=== PATIENT | male | born 1960 | race Caucasian/White ===

== ENCOUNTER 2020-11-11 11:51 | Outpatient (CLI) | payer BC, SELFPAY ==
--- NOTE | 2020-11-11 12:41 | ECG_ITS ---
Measurements Intervals [place] Rate: 77 P: 50 RI: 171 QRS: 60 QRSD: 111 T: 11 QT: 334 QTc: 380 Interpretive Statements SINUS RHYTHM INTRAVENTRICULAR CONDUCTION DELAY DELAYED PRECORDIAL R/S TRANSITION BORDERLINE ECG Electronically Signed On 11-11-2020 12:54:07 CDT by Sven Penn D.O.
[2020-11-11 13:16] LABS: Basophils Absolute Auto 0.1 K/mm3 (0.0-0.1); Basophils Percent Auto 0.7 % (0.2-1.2); Eosinophils Absolute Auto 0.1 K/mm3 (0-0.3); Eosinophils Percent Auto 0.9 % (0-4.4); Hematocrit 45.1 % (42.0-52.0); Hemoglobin 15.4 g/dL (14.0-18.0); Immature Granulocyte Absolute 0.02 K/mm3 (0.00-0.031); Immature Granulocyte Percent A 0.3 % (0-0.5); Lymphocytes Absolute Auto 2.36 K/mm3 (0.9-3.2); Lymphocytes Percent Auto 30.8 % (18.3-44.2); Mean Corpuscular HGB Conc 34.1 g/dl (32-36); Mean Corpuscular Hemoglobin 30.4 pg (26-34); Monocytes Absolute Auto 0.5 K/mm3 (0.1-0.6); Monocytes Percent Auto 6.5 % (2.6-8.5); Neutrophils Absolute Auto 4.7 K/mm3 (1.3-6.7); Neutrophils Percent Auto 60.8 % (45.5-73.1); Platelet Count Result 345 k/mm3 (150-375); Red Blood Count 5.07 M/mm3 (4.6-6.20); Red Cell Distribution Width 12.7 % (11.5-14.5); White Blood Count 7.7 K/mm3 (4.5-10.0)
[2020-11-11 13:26] LABS: INR 0.9; Prothrombin Time 12.8 Seconds (11.1-14.7)
[2020-11-11 13:27] LABS: Alanine Aminotransferase 15 U/L (4-50); Albumin Level 4.5 g/dL (3.5-5.1); Alkaline Phosphatase 69 U/L (38-126); Anion Gap 5 mmol/L (8-16); Aspartate Amino Transferase 28 U/L (17-59); Bilirubin,Total 0.3 mg/dL (0.2-1.3); Blood Urea Nitrogen 14 mg/dL (9-20); Calcium 9.2 mg/dL (8.4-10.2); Carbon Dioxide 35 mmol/L (22-30); Chloride 102 mmol/L (98-107); Estimated Glomerular Filt Rate > 60; Glucose 90 mg/dL (75-110); Partial Thromboplastin Time 29.3 SECONDS (22.3-36.8); Sodium 142 mmol/L (137-145)
== END 2020-11-11 11:52 | disposition home or self-care (01) ==
LOC: ANHSURGERY 11:56
PROVIDERS: Family Provider Pediatrics; PCP Pediatrics; Visit Provider Urology
DX: C61 Malignant neoplasm of prostate (principal); I45.9 Conduction disorder, unspecified
CPT/HCPCS: 36415; 80053; 85025; 85610; 85730; 86850; 86900; 86901; 87086; 93005

== ENCOUNTER → 2020-11-16 01:25 | Outpatient (CLI) | payer BC, SELFPAY ==
[2020-11-16 19:34] LABS: SARS-CoV-2 RNA PCR Negative
== END ==
PROVIDERS: Family Provider Pediatrics; PCP Pediatrics; Visit Provider Urology
DX: Z01.812 Encounter for preprocedural laboratory examination (principal); Z20.822 Contact with and (suspected) exposure to COVID-19
CPT/HCPCS: C9803; U0003; U0005

== ENCOUNTER 2020-11-19 01:03 | Day surgery (SDC) | payer BC, SELFPAY ==
[2020-11-11 12:09] VITALS: BMI 28.0
[2020-11-11 12:41] VITALS: BP 139/84; PULSE 92; RESP 16; TEMP 37.1; O2SAT 99
[2020-11-19] VITALS (14 sets, daily range): BP systolic 102–140; BP diastolic 68–86; PULSE 81–99; RESP 12–18; TEMP 35.4–37.2; O2SAT 94–100; BMI 27.5
[2020-11-19] MEDS: LACTATED RINGERS 1,000 ML 30 ML IV CONT ×2 (06:32→11:52)
--- NOTE | 2020-11-19 06:52 | WPDANESEPPF ---
Anes - Initial Pre Proc Eval Procedure: Operation Date: 11/19/20 07:30 Proposed Procedures p Robotic Assisted Nerve Sparing Prostatectomy, Possible Pelvic Lymph Node Dissection - Reza Cho MD Date/Time: 11/19/20 06:52 Surgeon: Reza Cho MD Pre Op Diagnosis: Prostate Ca Patient Data Age: 60 Gender: M Height: 5 ft 8 in Weight: 82.2 kg Last Vital Signs Temp 36.6 C 11/19/20 06:18 Pulse 92 11/19/20 06:18 Resp 18 11/19/20 06:18 BP 135/86 11/19/20 06:18 Pulse Ox 99 11/19/20 06:18 Allergies Allergy/AdvReac Type Severity Reaction Status Date / Time No Known Allergies Allergy Mild Verified 11/19/20 06:05 Home Medications Medication Instructions Recorded Confirmed Type fluticasone propionate 2 spray INTRANASAL PRN PRN 11/11/20 11/19/20 History avesrktf-ayg-fzvja-vit K-lycop 1 tablet PO DAILY 11/11/20 11/19/20 History [One-A-Day Men's 50 Plus] Patient hx anesthesia problems: none Family hx anesthesia problems: none PMFSH Past Medical History Medical History (Updated 11/19/20 @ 06:52 by Nader Stephens MD) Prostate cancer Surgical History Surgical History (Updated 11/19/20 @ 06:52 by Nader Stephens MD) History of appendectomy Hx of cystoscopy Social History Social History Smoking status: Never smoker Living arrangements: with family Spiritual care concerns: No Anes - Eval Final PreProcedure Day of Procedure 11/19/20 06:52 Patient weight: overweight Heart: regular rate and rhythm Lungs: clear to auscultation Airway: Mallampati scale class II Neurological: alert and oriented Last oral intake: >/= 8 hours ASA classification: II Emergent: no Anesthetic plan: proceed Anesthesia type and monitoring: general ETT and standard monitoring Informed Consent: The patient's anesthetic plan and its attendant risks and benefits were discussed with the patient/family/POA. Questions were solicited and answers provided to the satisfaction of the patient/family/POA.
--- NOTE | 2020-11-19 07:13 | WPDHPUPDATE1 ---
History and Physical Update Update Date/Time: 11/19/20 07:13 History and Physical has been reviewed, including an updated exam of the patient. There are NO changes in the patient's condition. Risks, benefits, and alternatives have been discussed and questions answered. Patient agrees to proceed with procedure. Proceed with robotic assist nerve sparing prostatectomy with possible plnd
[2020-11-19] MEDS: ceFAZolin 2 GM/D5W 50 ML 2 GM/50 ML BAG IVPB (07:24)
[2020-11-19] MEDS: BUPIVACAINE HCL 0.5% PF 30 ML VIAL INFILTRATE (07:55)
[2020-11-19] MEDS: ceFAZolin SODIUM 1 GM VIAL IV PUSH (11:20)
--- NOTE | 2020-11-19 11:38 | PM.PROC ---
Procedure Note - Detailed Date of procedure: 11/19/20 Pre-op diagnosis: Prostate Ca Post-op diagnosis: same Procedure performed: Robotic assisted nerve-sparing prostatectomy with left pelvic lymph node dissection Description of procedure: Patient is taken the operative suite and correctly identified. Once anesthesia was obtained he is placed in the low lying dorsal lithotomy position. He is prepped and draped usual sterile fashion. Supraumbilical incision was made carried down to the rectus fascia. Veress needle was inserted and the abdomen insufflated to 15 mm Hg pressure. A camera port was then placed in direct vision. Appropriate working ports were placed in their normal locations. Patient was placed in steep Trendelenburg position and the robot was docked. Patient had some adhesions of the left colon which were taken down. Posterior approach was then performed. Seminal vesicles were dissected out in their entirety. Vas is were transected. Plane between the prostate and rectum was developed. Bladder was then taken down standard fashion. The space of Retzius was developed. Puboprostatic were taken down. Dorsal venous complex was isolated using a 0 Vicryl suture. This secured to the pubic bone. Bladder neck was then incised. A bladder neck sparing procedure was performed. Posterior sheath was transected and the seminal vesicles which were dissected previously were visualized. Pedicles were clipped. Bilateral nerve-sparing procedure was performed. Dorsal venous complex was transected. Urethra was also transected. This was placed in an Endo-Catch bag. Left pelvic lymph node dissection was performed with the boundaries being the external iliac vein. Obturator nerve. Cortes's ligament the bifurcation. Clips were placed proximally distally. These also were placed in Endo-Catch bag. A Calderon stitch was then performed using 0 Vicryl. Urethral stump was then anastomosed to the bladder neck with good mucosa to mucosa approximation. This was accomplished using a V lock suture. Sixteen Salv[place] Carroll was then inserted inflated with 10 cc of sterile water. The bladder was filled with 250 cc saline. There was no evidence of extravasation at this time. Surgicel had been placed over the neurovascular bundles and the left obturator fossa. All lap count needle count sponge counts were correct. A Mina drain was then placed through the 3rd arm port site. The robot was undocked. Specimen was brought out through the midline incision. Rectus fascia was closed using 0 Vicryl in a running fashion. Subcuticular stitches were placed. The wounds were anesthetized with 1% lidocaine. Patient tolerated procedure well without any complications taken recovery stable condition. Surgeon: Reza Cho MD Estimated blood loss (mL): 150 Drains: Yes Packing: No Pathology: yes Complications: No immediate complications Condition: stable Disposition: PACU
[2020-11-19] MEDS: fentaNYL CITRATE INJ (*CRX) 100 MCG/2 ML VIAL 25 MCG IV PUSH (12:30)
--- NOTE | 2020-11-19 13:28 | ADMGEN ---
This patient, Pineda Chavira, was admitted to Medical Room 340-01. Patient/family oriented to hospital policies and general routines including ID bracelet, bed and alarms, visiting hours, pain management, procedures, bathroom and other care routines, personal items, smoking policy, room service/diet, and visiting hours. Information on how to activate the Rapid Response Team has been discussed. Patient/Family are encouraged to report perceived risks to care and to ask questions if they do not understand what they are told or what they should do.
[2020-11-19 13:32] LABS: Prothrombin Time 13.4 Seconds (11.1-14.7)
[2020-11-19] MEDS: LACTATED RINGERS 1,000 ML 125 ML IV CONT (16:13)
[2020-11-19] MEDS: HYOSCYAMINE SULFATE 0.125 MG TABLET SUBLINGUAL (16:17)
[2020-11-19] MEDS: HYDROcodone/acetaminophen (*CRX) 5-325 MG TABLET 1 TAB PO (19:49)
[2020-11-20] MEDS: LACTATED RINGERS 1,000 ML 125 ML IV CONT (00:20)
[2020-11-20] MEDS: HYDROcodone/acetaminophen (*CRX) 5-325 MG TABLET 1 TAB PO ×2 (04:59→12:11)
[2020-11-20 05:37] VITALS: BP 124/71; PULSE 88; RESP 14; TEMP 36.7; O2SAT 100
[2020-11-20 05:58] LABS: Hematocrit 37.1 % (42.0-52.0); Hemoglobin 12.3 g/dL (14.0-18.0)
[2020-11-20 06:07] LABS: Sodium 139 mmol/L (137-145)
[2020-11-20 06:13] LABS: Anion Gap 2 mmol/L (8-16); Blood Urea Nitrogen 15 mg/dL (9-20); Calcium 8.3 mg/dL (8.4-10.2); Carbon Dioxide 33 mmol/L (22-30); Chloride 104 mmol/L (98-107); Estimated CRCL calculation 81 ml/min; Estimated Glomerular Filt Rate > 60; Glucose 103 mg/dL (75-110)
--- NOTE | 2020-11-20 12:37 | WPDUROPN2 ---
Progress Note: A&P Assessment and Plan (1) Adenocarcinoma of prostate: Code(s): C61 - Malignant neoplasm of prostate Status: Acute Assessment and Plan: Doing well on postoperative day 1. Will discharge home with Carroll catheter. Remove MARKUS prior to drainage. Follow-up in a week's time for catheter cystogram. Subjective Subjective Date/Time Seen: 11/20/20 12:37 Post Op day: 1 Principal diagnosis: Adenocarcinoma of prostate Interval history: Kris is doing great postoperative day 1. He is already ambulating and tolerating a diet. He is anxious to go home. Review of Systems Review of Systems: All systems reviewed & are unremarkable except as noted in HPI and below Exam Const: General: cooperative and comfortable Chest: Chest palpation & inspection: normal inspection of the chest Resp: Effort & Inspection: normal respiratory effort Cardio: Rate: regular rate Rhythm: regular rhythm Objective Data Vital Signs Vital Signs: Vital Signs - 24 hr 11/19/20 12:45 11/19/20 12:55 11/19/20 13:13 Temperature 35.4 C L Pulse Rate 82 89 93 Respiratory Rate 12 12 16 Blood Pressure 106/75 113/74 140/85 Pulse Oximetry 97 100 100 11/19/20 13:28 11/19/20 13:42 11/19/20 14:18 Temperature 35.6 C L 35.6 C L Pulse Rate 94 96 Respiratory Rate 14 14 Blood Pressure 132/84 134/76 Pulse Oximetry 99 100 100 11/19/20 16:01 11/19/20 18:10 11/19/20 22:40 Temperature 37.2 C 36.8 C Pulse Rate 99 97 Respiratory Rate 16 18 Blood Pressure 120/76 111/71 Pulse Oximetry 97 94 98 11/20/20 05:37 Temperature 36.7 C Pulse Rate 88 Respiratory Rate 14 Blood Pressure 124/71 Pulse Oximetry 100 Intake/Output Intake/Output: Intake & Output 11/17/20 11/18/20 11/19/20 11/20/20 23:59 23:59 23:59 23:59 Intake Total 490 3644 Output Total 330 4000 Balance 160 -356 Meds/Results Medications: Active Medications Generic Name Dose Route Start Last Admin Trade Name Freq PRN Reason Stop Dose Admin Hydrocodone Bitart/Acetaminophen 1 tab 11/19/20 12:56 11/20/20 12:11 Hydrocodone/Acetaminophen (*Crx) 5-325 Mg Tablet PO 1 tab Q6H PRN Administration Pain Rated 1-3 Hydrocodone Bitart/Acetaminophen 2 tab 11/19/20 12:56 Hydrocodone/Acetaminophen (*Crx) 5-325 Mg Tablet PO Q6H PRN Pain Rated 4-6 Hyoscyamine 0.125 mg 11/19/20 12:56 11/19/20 16:17 Hyoscyamine Sulfate 0.125 Mg Tablet SUBLINGUAL 0.125 mg Q4H PRN Administration Bladder Spasm Lactated Ringer's 1,000 mls @ 125 mls/hr 11/19/20 12:56 11/20/20 05:00 Lr - Lactated Ringers Iv IV CONT 125 mls/hr .Q8H ALEX Infusion Levofloxacin 500 mg 11/20/20 09:00 11/20/20 08:08 Levofloxacin Tab 500 Mg Tablet PO 500 mg DAILY ALEX Administration Morphine Sulfate 1 mg 11/19/20 12:56 Morphine Sulfate (*Crx) 2 Mg/Ml Inj IV PUSH Q2H PRN Pain Rated 7-10 Naloxone HCl 0.1 mg 11/19/20 12:56 Naloxone Hcl 0.4 Mg/Ml Vial IV PUSH Q2M PRN Opiate Reversal Ondansetron HCl 4 mg 11/19/20 12:56 Ondansetron Inj 4 Mg/2 Ml Vial IV PUSH Q6H PRN Nausea And Vomiting Labs Labs: Laboratory Results - last 24 hr 11/19/20 11/20/20 11/20/20 13:09 05:20 05:20 Hgb 12.3 L D Hct 37.1 L PT 13.4 INR 1.0 Sodium 139 Potassium 4.0 Chloride 104 Carbon Dioxide 33 H Anion Gap 2 L BUN 15 Creatinine 0.80 Estim Creat Clear Calc 81 Estimated GFR > 60 Glucose 103 Calcium 8.3 L
--- NOTE | 2020-11-20 13:40 | PC.NURSE ---
Education given on proper care and exchange of chawla bags, from large to small leg bag. Pt given extra supplies. Verbalizes understanding.
== END 2020-11-20 13:43 | disposition home or self-care (01) ==
LOC: ANHSURGERY 05:56 → ANH3MED 12:58
PROVIDERS: PCP Pediatrics; Visit Provider Urology
PROC: 0VT04ZZ Resection of Prostate, Percutaneous Endoscopic Approach (ICD-10-PCS; CPT 55867; principal; 2020-11-19 07:30)
DX: C61 Malignant neoplasm of prostate (principal)
CPT/HCPCS: 55866; 38571; S2900; 36415; 80048; 85014; 85018; 85610; 88307; 88309; A9270; C9803; J0690; J1100; J1170; J2250; J2405; J2704; J2710; J3010; J7030; J7120; Q9968; U0003; U0005

== ENCOUNTER 2020-11-27 09:09 | Outpatient (CLI) | payer BC, SELFPAY ==
--- NOTE | ~2020-11-27 | XR_ITS ---
EXAMINATION: XR cystogram EXAM DATE: 11/27/2020 09:45 INDICATION: Prostate cancer. One week postoperative. TECHNIQUE: Fluoroscopic guidance used during cystogram performed through Carroll catheter in place on p atient arrival. An Omnipaque 350/saline solution was used and allowed to infuse through the Carroll cat heter under gravity. Gospel Singer image, fluoroscopic images and postevacuation image were obtained. Total fluoroscopic time of 0.1 minutes. A total of 31 images obtained for the exam. The DAP for this proce dure was 4.3 mGym2. FINDINGS: Gospel Singer image is unremarkable. Patient tolerated approximately 200 milliliters of distention. There is mild bladder wall trabeculation. No contrast extravasation or ureteral reflux. IMPRESSION: Mild bladder wall trabeculation. No extravasation. Reviewed, dictated and finalized at location A.
== END 2020-11-27 09:10 | disposition home or self-care (01) ==
PROVIDERS: PCP Pediatrics; Visit Provider Urology
DX: C61 Malignant neoplasm of prostate (principal)
CPT/HCPCS: 51600; 74430; Q9967